=== PATIENT | female | born 1975 | race African-American/Black ===

== ENCOUNTER 2021-03-20 18:08 | Emergency (ER) | payer OTHER ==
[~2021-03-20] VITALS: Ht 162.6 cm; Wt 89.8 kg
[2021-03-20 19:02] LABS: PLATELET COUNT 353 K/uL (152-353)
[2021-03-20 22:48] VITALS: BP 151/94; TEMP 97.9
== END 2021-03-20 22:48 | disposition home or self-care (01) ==
LOC: ED 18:08
PROVIDERS: Emergency Medicine Emergency Medical Services
DX: H83.09 Labyrinthitis, unspecified ear (principal)
CPT/HCPCS: 36415; 80048; 85027; 96360; 96361; 96375; 99284; J2405